=== PATIENT | female | born 1930 | race Caucasian/White ===

== ENCOUNTER → 2016-10-10 | Outpatient (CLI) | payer MEDICARE, OTHER ==
[~2016-10-10] MED LIST: AMLO5TAB2 PO; ANAS1TAB PO; ASCO10004 PO; ASCO500T8 PO; ASPI-496 PO; ASPI325T4 PO; BUDE10.22 INH; CALC1CAP8 PO; CHOL10002 PO; CINN500C2 PO; CYAN1TAB29 PO; DONE5TAB7 PO; FURO20TA3 PO; GLUC1TAB27 PO; HYDR-3138 PO; HYDR-3144 PO; LEVO112T25 PO; LEVO500T33 PO; LISI40TA PO; METH500C3 PO; METH750T2 PO; MULT-717 PO; OMEP20CA9 PO; ONDA4TAB7 PO; SENN1TAB7 PO; SIMV20TA3 PO; curcumin PO; magnesium PO
== END | disposition home or self-care (01) ==
LOC: PETCFH 07:55
PROVIDERS: ATTEND Internal Medicine Hematology & Oncology
DX: C79.51 Secondary malignant neoplasm of bone (principal); C77.3 Secondary and unspecified malignant neoplasm of axilla and upper limb lymph nodes; C50.911 Malignant neoplasm of unspecified site of right female breast; Z96.642 Presence of left artificial hip joint
CPT/HCPCS: 78306; A9503

== ENCOUNTER → 2016-10-10 | Outpatient (CLI) | payer MEDICARE, OTHER ==
[~2016-10-10] MED LIST changes: +GADOBUTROL 10 MMOL/10 ML PFS ONE; +OMNIPAQUE 350 MG/ML, 100ML BOTTLE ONE
== END | disposition home or self-care (01) ==
LOC: CFH 07:50
PROVIDERS: ATTEND Internal Medicine Hematology & Oncology
DX: C79.51 Secondary malignant neoplasm of bone (principal); C77.3 Secondary and unspecified malignant neoplasm of axilla and upper limb lymph nodes; C50.911 Malignant neoplasm of unspecified site of right female breast; G31.9 Degenerative disease of nervous system, unspecified; I73.9 Peripheral vascular disease, unspecified; J98.11 Atelectasis; J47.9 Bronchiectasis, uncomplicated
CPT/HCPCS: 70553; 71260; 74177; A9585; Q9967

== ENCOUNTER → 2016-10-24 | Outpatient (CLI) | payer MEDICARE, OTHER ==
[~2016-10-24] MED LIST changes: -GADOBUTROL 10 MMOL/10 ML PFS ONE; -OMNIPAQUE 350 MG/ML, 100ML BOTTLE ONE
[2016-10-24 12:56] LABS: BLOOD UREA NITROGEN 25 mg/dL (7-18)
[2016-10-24 13:08] LABS: ASPARTATE AMINO TRANSFERASE 37 U/L (15-37)
== END | disposition home or self-care (01) ==
LOC: CFH 11:52
PROVIDERS: ATTEND Family Medicine
DX: Z00.01 Encounter for general adult medical examination with abnormal findings (principal); E03.9 Hypothyroidism, unspecified
CPT/HCPCS: 36415; 80053; 84436; 84443; 85025

== ENCOUNTER 2017-04-16 14:06 | Inpatient (IN) | payer MEDICARE, OTHER ==
[~2017-04-16] VITALS: Ht 157.5 cm; Wt 61.1 kg
[~2017-04-16 14:06] MED LIST changes: +ASPI325T17 PO; -ASPI325T4 PO; -HYDR-3138 PO; -HYDR-3144 PO; +HYDR-3237 PO; +HYDR-3245 PO; -LEVO112T25 PO; +LEVO112T41 PO; -LEVO500T33 PO; +LEVO500T47 PO
[2017-04-16] MEDS ORDERED: SODIUM CHLORIDE FLUSH 10ML SYR IVF ONE (15:00)
[2017-04-16 15:10] LABS: HEMATOCRIT 32.3 % (34.6-47.8); HEMOGLOBIN 10.5 g/dL (11.7-16.4); WHITE BLOOD COUNT 10.3 x10^3/uL (3.4-10)
[2017-04-16 15:24] LABS: ASPARTATE AMINO TRANSFERASE 56 U/L (15-37); BLOOD UREA NITROGEN 34 mg/dL (7-18)
[2017-04-16 15:29] LABS: IS PT STATUS REG ER OR PRE ER? YES
[2017-04-16 15:36] LABS: ACANTHOCYTES 1+; ANISOCYTOSIS 1+; OVALOCYTES 1+
[2017-04-16] MEDS ORDERED: LABETALOL 5MG/ML, 20ML IVPush PRN (17:30)
[2017-04-16] MEDS ORDERED: ALBUTEROL/IPRATROPIUM 2.5MG/0.5MG, 3 ML NPPB PRN (18:00)
[2017-04-16 19:45] VITALS: BP 164/75
[2017-04-16] MEDS: SODIUM CHLORIDE 0.9% 1,000 ML IV SCH (20:03)
[2017-04-16] MEDS: HEPARIN 5,000 UNITS/ML, 1ML SQ SCH (20:04)
[2017-04-16] MEDS: AMLODIPINE 5 MG TABLET PO SCH (22:08)
[2017-04-16] MEDS: SIMVASTATIN 20 MG TABLET PO SCH (22:08)
[2017-04-17 01:57] VITALS: BP 156/72
[2017-04-17] MEDS: LEVOTHYROXINE 112 MCG TABLET PO SCH (05:15)
[2017-04-17] MEDS: HEPARIN 5,000 UNITS/ML, 1ML SQ SCH ×3 (05:15→21:26)
[2017-04-17 07:38] VITALS: BP 148/75
[2017-04-17] MEDS: LISINOPRIL 20 MG TABLET PO SCH (09:54)
[2017-04-17] MEDS: SENNA/DOCUSATE TABLET PO SCH (09:54)
[2017-04-17] MEDS: CHOLECALCIFEROL 1,000 UNIT TABLET PO SCH (09:55)
[2017-04-17] MEDS: CALCIUM/VITAMIN D3 250-125 TABLET PO SCH (09:55)
[2017-04-17] MEDS: CYANOCOBALOMIN 100MCG TABLET PO SCH (09:55)
[2017-04-17] MEDS: FOLIC ACID 1 MG TABLET PO SCH (09:55)
[2017-04-17] MEDS: ASPIRIN 81 MG TABLET EC PO SCH (09:55)
[2017-04-17] MEDS: AMLODIPINE 5 MG TABLET PO SCH ×2 (09:55→21:26)
[2017-04-17] MEDS: SODIUM CHLORIDE 0.9% 1,000 ML IV SCH (13:11)
[2017-04-17 14:10] VITALS: BP 135/57
[2017-04-17 17:11] LABS: OCCBLD OBC PASS
[2017-04-17 18:32] VITALS: BP 143/69
[2017-04-17] MEDS: SIMVASTATIN 20 MG TABLET PO SCH (21:26)
[2017-04-18 01:26] VITALS: BP 136/64
[2017-04-18] MEDS: HEPARIN 5,000 UNITS/ML, 1ML SQ SCH ×3 (05:16→21:10)
[2017-04-18] MEDS: LEVOTHYROXINE 112 MCG TABLET PO SCH (05:17)
[2017-04-18] MEDS: SENNA/DOCUSATE TABLET PO SCH (09:00)
[2017-04-18] MEDS: AMLODIPINE 5 MG TABLET PO SCH ×2 (09:00→21:10)
[2017-04-18] MEDS: CITALOPRAM 20 MG TABLET PO SCH (09:00)
[2017-04-18] MEDS: CHOLECALCIFEROL 1,000 UNIT TABLET PO SCH (09:00)
[2017-04-18] MEDS: FOLIC ACID 1 MG TABLET PO SCH (09:00)
[2017-04-18] MEDS: ASPIRIN 81 MG TABLET EC PO SCH (09:00)
[2017-04-18] MEDS: CYANOCOBALOMIN 100MCG TABLET PO SCH (09:00)
[2017-04-18] MEDS: LISINOPRIL 20 MG TABLET PO SCH (09:00)
[2017-04-18] MEDS: CALCIUM/VITAMIN D3 250-125 TABLET PO SCH (09:00)
[2017-04-18 09:15] VITALS: BP 149/56
[2017-04-18] MEDS: SODIUM CHLORIDE 0.9% 1,000 ML IV SCH (10:00)
[2017-04-18 12:35] VITALS: BP 143/81
[2017-04-18 19:25] VITALS: BP 135/67
[2017-04-18] MEDS: SIMVASTATIN 20 MG TABLET PO SCH (21:10)
[2017-04-19 01:53] VITALS: BP 138/72
[2017-04-19] MEDS: HEPARIN 5,000 UNITS/ML, 1ML SQ SCH (05:00)
[2017-04-19] MEDS: LEVOTHYROXINE 112 MCG TABLET PO SCH (05:00)
[2017-04-19 07:12] VITALS: BP 151/71
[2017-04-19] MEDS: CITALOPRAM 20 MG TABLET PO SCH (08:37)
[2017-04-19] MEDS: FOLIC ACID 1 MG TABLET PO SCH (08:38)
[2017-04-19] MEDS: CYANOCOBALOMIN 100MCG TABLET PO SCH (08:38)
[2017-04-19] MEDS: AMLODIPINE 5 MG TABLET PO SCH (08:38)
[2017-04-19] MEDS: SENNA/DOCUSATE TABLET PO SCH (08:39)
[2017-04-19] MEDS: CALCIUM/VITAMIN D3 250-125 TABLET PO SCH (08:39)
[2017-04-19] MEDS: LISINOPRIL 20 MG TABLET PO SCH (08:39)
[2017-04-19] MEDS: ASPIRIN 81 MG TABLET EC PO SCH (08:39)
[2017-04-19] MEDS: CHOLECALCIFEROL 1,000 UNIT TABLET PO SCH (08:39)
== END 2017-04-19 11:57 | disposition hospice, home (50) | DRG 543 ==
LOC: ED 16:14 → EDIP 16:15 → ED 17:10 → 3NW 18:12
PROVIDERS: ADMIT Family Medicine; ATTEND Family Medicine
DX: C79.51 Secondary malignant neoplasm of bone (principal); J98.11 Atelectasis; Z99.81 Dependence on supplemental oxygen; C50.919 Malignant neoplasm of unspecified site of unspecified female breast; R53.1 Weakness; F32.9 Major depressive disorder, single episode, unspecified; F03.90 Unspecified dementia, unspecified severity, without behavioral disturbance, psychotic disturbance, mood disturbance, and anxiety; E03.9 Hypothyroidism, unspecified; E78.5 Hyperlipidemia, unspecified; G89.29 Other chronic pain; M54.5 Low back pain; I35.2 Nonrheumatic aortic (valve) stenosis with insufficiency; W18.30XA Fall on same level, unspecified, initial encounter; Z96.649 Presence of unspecified artificial hip joint; Z96.659 Presence of unspecified artificial knee joint; I11.9 Hypertensive heart disease without heart failure; J45.909 Unspecified asthma, uncomplicated; Z66 Do not resuscitate; Z79.811 Long term (current) use of aromatase inhibitors; Z79.899 Other long term (current) drug therapy; Z80.3 Family history of malignant neoplasm of breast; Z85.3 Personal history of malignant neoplasm of breast; Z86.711 Personal history of pulmonary embolism; Z86.73 Personal history of transient ischemic attack (TIA), and cerebral infarction without residual deficits; Z87.891 Personal history of nicotine dependence; Z90.10 Acquired absence of unspecified breast and nipple; Z90.710 Acquired absence of both cervix and uterus; Y93.89 Activity, other specified; Y92.89 Other specified places as the place of occurrence of the external cause; Y99.8 Other external cause status
CPT/HCPCS: 36415; 70450; 71010; 80053; 81003; 82272; 82607; 82746; 84443; 84484; 85025; 85610; 85730; 86592; 93005; 93306; 99285; J1644; J7030

== ENCOUNTER 2017-07-24 07:58 | Inpatient (IN) | payer MEDICARE, OTHER ==
[~2017-07-24] VITALS: Ht 157.5 cm; Wt 57.8 kg
[2017-07-24] MEDS ORDERED: EXEM25TA2 BC (08:11)
[2017-07-24] MEDS ORDERED: ESCI20TA PO (08:11)
[2017-07-24] MEDS ORDERED: MORPHINE PAIN PUMP (08:12)
[2017-07-24] MEDS ORDERED: ONDANSETRON 2MG/ML, 2ML ONE (09:11)
[2017-07-24] MEDS ORDERED: PANTOPRAZOLE 40 MG IV ONE (09:11)
[2017-07-24 09:24] LABS: BASOPHILS # (AUTO) 0.03 x10^3/uL (0-0.1); BASOPHILS % (AUTO) 0 % (0-1); EOSINOPHILS # (AUTO) 0.02 x10^3/uL (0-0.4); EOSINOPHILS % (AUTO) 0 % (1-7); LYMPHOCYTES # (AUTO) 0.96 x10^3/uL (1-3.4); LYMPHOCYTES % (AUTO) 13 % (22-44); MD NO; MEAN CORPUSCULAR HEMOGLOBIN 27.7 pg (27.0-34.8); MEAN CORPUSCULAR HGB CONC 32.6 g/dL (32.4-35.8); MEAN CORPUSCULAR VOLUME 84.9 fL (80-100); MEAN PLATELET VOLUME 8.2 fL (7.4-10.4); MONOCYTES # (AUTO) 0.64 x10^3/uL (0.2-0.8); MONOCYTES % (AUTO) 8 % (2-9); NEUTROPHILS # (AUTO) 6.06 x10^3/uL (1.8-6.8); NEUTROPHILS % (AUTO) 79 % (42-75); PLATELET COUNT 312 x10^3/uL (130-400); RED BLOOD COUNT 2.89 x10^6/uL (3.82-5.3)
[2017-07-24] MEDS ORDERED: SODIUM CHLORIDE 0.9% 1,000ML IVBOLUS ONE (09:30)
[2017-07-24] MEDS ORDERED: ONDANSETRON 2MG/ML, 2ML IVPush ONE (09:30)
[2017-07-24] MEDS ORDERED: PANTOPRAZOLE 40 MG IV IVPush ONE ×2 (09:30→10:30)
[2017-07-24 09:32] LABS: INTERNATIONAL NORMALIZED RATIO 1.07 (0.93-1.1); PROTHROMBIN TIME 11.1 Seconds (9.6-11.5)
[2017-07-24 09:36] LABS: ALBUMIN 2.7 g/dL (3.4-5.0); ANION GAP 6 mmol/L (5-15); CALCIUM 8.7 mg/dL (8.5-10.1); CHLORIDE 106 mmol/L (98-107)
[2017-07-24 09:39] LABS: ALANINE AMINOTRANSFERASE 39 U/L (12-78); ALKALINE PHOSPHATASE 103 U/L (45-117); BILIRUBIN,TOTAL 0.3 mg/dL (0.2-1.0); CREATININE 0.89 mg/dL (0.55-1.02); TOTAL PROTEIN 6.7 g/dL (6.4-8.2)
[2017-07-24] MEDS ORDERED: SODIUM CHLORIDE FLUSH 10ML SYR IVF ONE (10:30)
[2017-07-24] MEDS ORDERED: PANTOPRAZOLE 80 MG in SODIUM CHLORIDE 0.9% 100 ML IV SCH (11:00)
[2017-07-24 11:08] VITALS: BP 106/67
[2017-07-24 11:16] VITALS: BP 106/67
[2017-07-24] MEDS ORDERED: ASPI-496 PO (11:35)
[2017-07-24] MEDS ORDERED: AMLO5TAB4 PO (11:35)
[2017-07-24] MEDS ORDERED: DOCUSATE 100 MG CAPSULE PO PRN (12:00)
[2017-07-24] MEDS ORDERED: hydrALAzine 20 MG/ML, 1ML IVPush PRN (12:00)
[2017-07-24] MEDS ORDERED: METOCLOPRAMIDE 5 MG/ML, 2ML IVPush PRN (12:00)
[2017-07-24] MEDS ORDERED: ACETAMINOPHEN 325 MG TABLET PO PRN (12:00)
[2017-07-24] MEDS ORDERED: POLYETHYLENE GLYCOL 17 GM PACKET PO PRN (12:00)
[2017-07-24] MEDS ORDERED: BISACODYL 10 MG SUPP PR PRN (12:00)
[2017-07-24] MEDS: D5%-0.45NACL+KCL 20MEQ 1,000 ML IV SCH (13:07)
[2017-07-24] MEDS ORDERED: FENTANYL PF 100 MCG/2ML ONE (13:53)
[2017-07-24] MEDS ORDERED: MIDAZOLAM 1 MG/ML, 5ML ONE (13:53)
[2017-07-24 15:40] VITALS: BP 115/60
[2017-07-24] MEDS ORDERED: ERYTHROMYCIN 500 MG in SODIUM CHLORIDE 0.9% 100 ML IV ONE (16:00)
[2017-07-24] MEDS ORDERED: METOCLOPRAMIDE 5 MG/ML, 2ML IV ONE (17:30)
[2017-07-24 20:26] VITALS: BP 115/57
[2017-07-24] MEDS: SIMVASTATIN 20 MG TABLET PO SCH (21:15)
[2017-07-25] VITALS (9 sets, daily range): BP systolic 124–149; BP diastolic 41–76
[2017-07-25 04:33] LABS: MEAN CORPUSCULAR HEMOGLOBIN 28.3 pg (27.0-34.8); MEAN CORPUSCULAR HGB CONC 32.8 g/dL (32.4-35.8); MEAN CORPUSCULAR VOLUME 86.4 fL (80-100); MEAN PLATELET VOLUME 8.2 fL (7.4-10.4); PLATELET COUNT 278 x10^3/uL (130-400); RED BLOOD COUNT 2.31 x10^6/uL (3.82-5.3); RED CELL DISTRIBUTION WIDTH 17.5 % (9.6-15.2)
[2017-07-25 04:38] LABS: ANION GAP 8 mmol/L (5-15); CALCIUM 7.8 mg/dL (8.5-10.1); CHLORIDE 110 mmol/L (98-107)
[2017-07-25 04:40] LABS: CREATININE 0.78 mg/dL (0.55-1.02)
[2017-07-25 04:47] LABS: BASOPHILS # (AUTO) 0.03 x10^3/uL (0-0.1); BASOPHILS % (AUTO) 0 % (0-1); EOSINOPHILS # (AUTO) 0.06 x10^3/uL (0-0.4); EOSINOPHILS % (AUTO) 1 % (1-7); LYMPHOCYTES # (AUTO) 1.42 x10^3/uL (1-3.4); LYMPHOCYTES % (AUTO) 19 % (22-44); MD MORPH REVIEW ONLY; MONOCYTES % (AUTO) 12 % (2-9); NEUTROPHILS # (AUTO) 5.26 x10^3/uL (1.8-6.8); NEUTROPHILS % (AUTO) 69 % (42-75)
[2017-07-25 04:48] LABS: ANISOCYTOSIS 1+; OVALOCYTES 1+; POLYCHROMASIA 1+; SCHISTOCYTES 1+
[2017-07-25 04:50] LABS: <PLATELET ESTIMATE> ADEQUATE; <PLT MORPHOLOGY> NORMAL PLT MORPH
[2017-07-25] MEDS: D5%-0.45NACL+KCL 20MEQ 1,000 ML IV SCH ×2 (07:01→20:00)
[2017-07-25] MEDS: VITAMIN D3 PO SCH (08:28)
[2017-07-25] MEDS: Exemestane 25 MG TAB HOMEMEDPO SCH (08:28)
[2017-07-25] MEDS: CALCIUM CARBONATE PO SCH (08:28)
[2017-07-25] MEDS: MAGNESIUM 500 MG PO SCH ×3 (08:29→21:00)
[2017-07-25] MEDS: (Escitalopram Oxalate** 20 MG) PO SCH (08:29)
[2017-07-25] MEDS: LEVOTHYROXINE 112 MCG TABLET PO SCH (08:29)
[2017-07-25] MEDS ORDERED: AMLODIPINE 5 MG TABLET PO SCH (09:00)
[2017-07-25] MEDS ORDERED: EXEMESTANE BC SCH (09:00)
[2017-07-25] MEDS ORDERED: LISINOPRIL 20 MG TABLET PO SCH (09:00)
[2017-07-25] MEDS ORDERED: MIDAZOLAM 1 MG/ML, 2ML ONE (14:24)
[2017-07-25] MEDS ORDERED: FENTANYL PF 100 MCG/2ML ONE (14:24)
[2017-07-25] MEDS ORDERED: PROPOFOL 10 MG/ML, 20ML ONE (14:35)
[2017-07-25] MEDS ORDERED: morphine SULFATE 10 MG/ML, 1ML IV PRN (16:00)
[2017-07-25] MEDS ORDERED: PROMETHAZINE 25 MG/ML, 1ML IV PRN (16:00)
[2017-07-25] MEDS ORDERED: hydrALAzine 20 MG/ML, 1ML IV PRN (16:00)
[2017-07-25] MEDS ORDERED: ACETAMINOPHEN 325 MG TABLET PO PRN (16:00)
[2017-07-25] MEDS ORDERED: LABETALOL 5MG/ML, 20ML IV PRN (16:00)
[2017-07-25] MEDS ORDERED: OXYcodone 5 MG/5 ML ORAL.SOL UDC PO PRN (16:00)
[2017-07-25] MEDS ORDERED: MEPERIDINE/PF 25MG/0.5ML IVPush PRN (16:00)
[2017-07-25] MEDS ORDERED: FENTANYL PF 100 MCG/2ML IV PRN (16:00)
[2017-07-25] MEDS: PANTOPRAZOLE 80 MG in SODIUM CHLORIDE 0.9% 100 ML IV SCH (17:22)
[2017-07-25] MEDS: METOCLOPRAMIDE 5 MG/ML, 2ML IVPush SCH ×2 (17:22→21:45)
[2017-07-25] MEDS ORDERED: FUROSEMIDE 20 MG/2 ML IV ONE (21:30)
[2017-07-25] MEDS: SIMVASTATIN 20 MG TABLET PO SCH (21:46)
[2017-07-25] MEDS ORDERED: ALBUTEROL/IPRATROPIUM 2.5MG/0.5MG, 3 ML NPPB PRN (22:30)
[2017-07-26 01:12] VITALS: BP 157/70
[2017-07-26] MEDS: PANTOPRAZOLE 80 MG in SODIUM CHLORIDE 0.9% 100 ML IV SCH ×3 (02:39→22:24)
[2017-07-26] MEDS: METOCLOPRAMIDE 5 MG/ML, 2ML IVPush SCH ×4 (04:49→22:05)
[2017-07-26 07:08] VITALS: BP 165/68
[2017-07-26] MEDS: Exemestane 25 MG TAB HOMEMEDPO SCH (09:00)
[2017-07-26] MEDS: MAGNESIUM 500 MG PO SCH ×3 (09:00→20:51)
[2017-07-26] MEDS: CALCIUM CARBONATE PO SCH (09:00)
[2017-07-26] MEDS: (Escitalopram Oxalate** 20 MG) PO SCH (09:00)
[2017-07-26] MEDS: ALBUTEROL/IPRATROPIUM 2.5MG/0.5MG, 3 ML NPPB SCH (09:00)
[2017-07-26] MEDS: VITAMIN D3 PO SCH (09:00)
[2017-07-26] MEDS: LEVOTHYROXINE 112 MCG TABLET PO SCH (09:41)
[2017-07-26 12:36] VITALS: BP 145/62
[2017-07-26 18:29] VITALS: BP 139/68
[2017-07-26] MEDS: SIMVASTATIN 20 MG TABLET PO SCH (20:51)
[2017-07-26] MEDS: D5%-0.45NACL+KCL 20MEQ 1,000 ML IV SCH (22:05)
[2017-07-27 01:14] VITALS: BP 162/68
[2017-07-27] MEDS: METOCLOPRAMIDE 5 MG/ML, 2ML IVPush SCH (04:29)
[2017-07-27 04:59] LABS: ANION GAP 7 mmol/L (5-15); CALCIUM 8.2 mg/dL (8.5-10.1); CHLORIDE 104 mmol/L (98-107)
[2017-07-27 05:00] LABS: CREATININE 0.58 mg/dL (0.55-1.02)
[2017-07-27] MEDS ORDERED: AMLODIPINE 5 MG TABLET PO ONE (06:30)
[2017-07-27 07:22] VITALS: BP 194/74
[2017-07-27] MEDS ORDERED: ONDANSETRON 2MG/ML, 2ML ONE ×2 (07:33→10:00)
[2017-07-27 07:58] VITALS: BP 137/65
[2017-07-27] MEDS ORDERED: ONDANSETRON 2MG/ML, 2ML IVPush PRN ×2 (08:00→10:00)
[2017-07-27] MEDS ORDERED: ONDANSETRON 4 MG TABLET PO PRN (08:30)
[2017-07-27] MEDS: ALBUTEROL/IPRATROPIUM 2.5MG/0.5MG, 3 ML NPPB SCH (09:00)
[2017-07-27] MEDS: PANTOPRAZOLE 80 MG in SODIUM CHLORIDE 0.9% 100 ML IV SCH (09:00)
[2017-07-27] MEDS: AMLODIPINE 5 MG TABLET PO SCH (09:00)
[2017-07-27] MEDS: MAGNESIUM 500 MG PO SCH ×3 (09:00→20:13)
[2017-07-27] MEDS: LISINOPRIL 20 MG TABLET PO SCH (09:00)
[2017-07-27] MEDS: VITAMIN D3 PO SCH (09:00)
[2017-07-27] MEDS: (Escitalopram Oxalate** 20 MG) PO SCH (09:00)
[2017-07-27] MEDS: CALCIUM CARBONATE PO SCH (09:00)
[2017-07-27] MEDS ORDERED: SUCCINYLCHOLINE 20 MG/ML, 10ML ONE (10:00)
[2017-07-27] MEDS ORDERED: ONDANSETRON ODT 8 MG PO PRN (10:00)
[2017-07-27] MEDS ORDERED: LABETALOL 5MG/ML, 20ML IV PRN (10:00)
[2017-07-27] MEDS ORDERED: METOPROLOL 1 MG/ML, 5ML IV PRN (10:00)
[2017-07-27] MEDS ORDERED: FENTANYL PF 100 MCG/2ML IV PRN (10:00)
[2017-07-27] MEDS ORDERED: hydrALAzine 20 MG/ML, 1ML IV PRN (10:00)
[2017-07-27] MEDS ORDERED: HYDROcodone/APAP 7.5-325MG/15ML UDC PO PRN (10:00)
[2017-07-27] MEDS ORDERED: EPHEDRINE 50 MG/ML, 1ML IVPush PRN (10:00)
[2017-07-27] MEDS ORDERED: ALBUTEROL SULFATE 2.5 MG/3 ML NPPB PRN (10:00)
[2017-07-27 11:29] VITALS: BP 113/57
[2017-07-27] MEDS: Exemestane 25 MG TAB HOMEMEDPO SCH (11:59)
[2017-07-27] MEDS: LEVOTHYROXINE 112 MCG TABLET PO SCH (11:59)
[2017-07-27 12:37] VITALS: BP 104/50
[2017-07-27 18:37] VITALS: BP 145/69
[2017-07-27] MEDS: SIMVASTATIN 20 MG TABLET PO SCH (20:13)
[2017-07-28 01:20] VITALS: BP 164/68
[2017-07-28] MEDS ORDERED: OMEPRAZOLE 20 MG CAPSULE.DR PO SCH (07:30)
[2017-07-28 07:53] VITALS: BP 139/71
[2017-07-28] MEDS: AMLODIPINE 5 MG TABLET PO SCH (08:28)
[2017-07-28] MEDS: LEVOTHYROXINE 112 MCG TABLET PO SCH (08:28)
[2017-07-28] MEDS: LISINOPRIL 20 MG TABLET PO SCH (08:28)
[2017-07-28] MEDS: (Escitalopram Oxalate** 20 MG) PO SCH (08:29)
[2017-07-28] MEDS: Exemestane 25 MG TAB HOMEMEDPO SCH ×2 (08:29→08:37)
[2017-07-28] MEDS: MAGNESIUM 500 MG PO SCH (08:29)
[2017-07-28] MEDS: VITAMIN D3 PO SCH (08:29)
[2017-07-28] MEDS: CALCIUM CARBONATE PO SCH (08:29)
[2017-07-28] MEDS ORDERED: OMEP20CA14 PO (10:19)
== END 2017-07-28 13:00 | disposition home or self-care (01) | DRG 377 ==
LOC: ED 09:46 → EDIP 09:47 → ED 09:49 → 3NW 10:51
PROVIDERS: ADMIT Family Medicine; ATTEND Family Medicine
PROC: 0DJ08ZZ Inspection of Upper Intestinal Tract, Via Natural or Artificial Opening Endoscopic (ICD-10-PCS; principal; 2017-07-24 14:19)
PROC: 30233N1 Transfusion of Nonautologous Red Blood Cells into Peripheral Vein, Percutaneous Approach (ICD-10-PCS; 2017-07-25)
PROC: 0DJ08ZZ Inspection of Upper Intestinal Tract, Via Natural or Artificial Opening Endoscopic (ICD-10-PCS; 2017-07-25)
PROC: 0W3P8ZZ Control Bleeding in Gastrointestinal Tract, Via Natural or Artificial Opening Endoscopic (ICD-10-PCS; 2017-07-27)
DX: K31.811 Angiodysplasia of stomach and duodenum with bleeding (principal); E43 Unspecified severe protein-calorie malnutrition; C79.51 Secondary malignant neoplasm of bone; D62 Acute posthemorrhagic anemia; E87.70 Fluid overload, unspecified; Q27.33 Arteriovenous malformation of digestive system vessel; E11.9 Type 2 diabetes mellitus without complications; F03.90 Unspecified dementia, unspecified severity, without behavioral disturbance, psychotic disturbance, mood disturbance, and anxiety; E03.9 Hypothyroidism, unspecified; I10 Essential (primary) hypertension; E78.5 Hyperlipidemia, unspecified; F17.210 Nicotine dependence, cigarettes, uncomplicated; K21.9 Gastro-esophageal reflux disease without esophagitis; Z66 Do not resuscitate; G89.29 Other chronic pain; M54.5 Low back pain; F32.9 Major depressive disorder, single episode, unspecified; Z79.82 Long term (current) use of aspirin; Z80.3 Family history of malignant neoplasm of breast; Z85.3 Personal history of malignant neoplasm of breast; Z86.711 Personal history of pulmonary embolism; Z86.73 Personal history of transient ischemic attack (TIA), and cerebral infarction without residual deficits
CPT/HCPCS: 36415; 71045; 80048; 80053; 83690; 83735; 84100; 85014; 85018; 85025; 85610; 85730; 86850; 86900; 86923; 93005; 94640; 96374; 96375; 99152; 99153; J2250; J2405; J2704; J3010; J7620; C9113; J0330; J0360; J1940; J2765; J3480; J7030; P9016

== ENCOUNTER 2017-08-29 15:19 | Emergency (ER) | payer MEDICARE, OTHER ==
[~2017-08-29] VITALS: Ht 157.5 cm; Wt 50.0 kg
[~2017-08-29 15:19] MED LIST changes: +AMLO5TAB4 PO; +ESCI20TA PO; +EXEM25TA2 BC; +MORPHINE PAIN PUMP; +OMEP20CA14 PO
[2017-08-29] MEDS ORDERED: SODIUM CHLORIDE FLUSH 10ML SYR IVF ONE (16:00)
[2017-08-29 16:05] LABS: BASOPHILS # (AUTO) 0.03 x10^3/uL (0-0.1); BASOPHILS % (AUTO) 1 % (0-1); EOSINOPHILS # (AUTO) 0.05 x10^3/uL (0-0.4); EOSINOPHILS % (AUTO) 1 % (1-7); LYMPHOCYTES # (AUTO) 1.28 x10^3/uL (1-3.4); LYMPHOCYTES % (AUTO) 20 % (22-44); MD NO; MEAN CORPUSCULAR HEMOGLOBIN 28.2 pg (27.0-34.8); MEAN CORPUSCULAR HGB CONC 32.3 g/dL (32.4-35.8); MEAN CORPUSCULAR VOLUME 87.2 fL (80-100); MEAN PLATELET VOLUME 8.1 fL (7.4-10.4); MONOCYTES # (AUTO) 0.95 x10^3/uL (0.2-0.8); MONOCYTES % (AUTO) 15 % (2-9); NEUTROPHILS # (AUTO) 4.26 x10^3/uL (1.8-6.8); NEUTROPHILS % (AUTO) 65 % (42-75); PLATELET COUNT 396 x10^3/uL (130-400); RED BLOOD COUNT 3.89 x10^6/uL (3.82-5.3)
[2017-08-29 16:17] LABS: ALANINE AMINOTRANSFERASE 36 U/L (12-78); ANION GAP 10 mmol/L (5-15); CALCIUM 8.2 mg/dL (8.5-10.1); CHLORIDE 105 mmol/L (98-107); CREATININE 0.82 mg/dL (0.55-1.02)
[2017-08-29 16:20] LABS: ALKALINE PHOSPHATASE 121 U/L (45-117); BILIRUBIN,TOTAL 0.5 mg/dL (0.2-1.0)
[2017-08-29] MEDS ORDERED: METHOCARBAMOL 750 MG TABLET ONE (16:27)
[2017-08-29] MEDS ORDERED: METHOCARBAMOL 750 MG TABLET PO ONE (16:30)
[2017-08-29] MEDS ORDERED: OMNIPAQUE 350 MG/ML, 100ML BOTTLE ONE (17:20)
[2017-08-29 18:15] VITALS: BP 129/60
== END 2017-08-29 18:26 | disposition home or self-care (01) ==
LOC: ED 16:21
DX: R25.2 Cramp and spasm (principal); F03.90 Unspecified dementia, unspecified severity, without behavioral disturbance, psychotic disturbance, mood disturbance, and anxiety; Z86.711 Personal history of pulmonary embolism; Z79.82 Long term (current) use of aspirin; Z85.3 Personal history of malignant neoplasm of breast
CPT/HCPCS: 36415; 70491; 80053; 85025; 99285; Q9967; 99406